=== PATIENT | female | born 1955 | race Two or more races ===

== ENCOUNTER 2018-12-13 14:19 | Inpatient (IN) | payer MEDICAID ==
[~2018-12-13] VITALS: Ht 137.2 cm; Wt 101.6 kg
[~2018-12-13 14:19] MED LIST: ALBU0.5N2; ASPI-231; CARB100C20; DIPH-120; METF500T; SIMV10TA73
[2018-12-13] MEDS ORDERED: ASPirin 81 mg TAB PO ONE (15:15)
[2018-12-13] MEDS ORDERED: NITROGLYCERIN 0.4 MG SL TAB SL ONE (15:15)
[2018-12-13] MEDS ORDERED: FUROSEMIDE 20 MG/2 ML VIAL IV ONE (15:15)
[2018-12-13 15:46] LABS: Basophils # (auto) 0.1 uL; Basophils % (auto) 0.6 % (0.0-2.0); Eosinophils # (auto) 0.9 uL; Eosinophils % (auto) 7.2 % (0.0-7.0); Hematocrit 43.3 % (36.0-46.0); Lymphocytes # (auto) 2.8 uL; Lymphocytes % (auto) 23.2 % (10.0-50.0); Mean Corpuscular Hemoglobin 27.2 pg (28.0-32.0); Mean Corpuscular Hgb Conc. 32.4 g/dL (32.0-36.0); Mean Corpuscular Volume 83.9 fL (80.0-100.0); Monocytes % (auto) 8.2 % (0.0-12.0); Neutrophils # (auto) 7.4 uL; Neutrophils % (auto) 60.8 % (37.0-80.0); Nucleated Red Blood Cells % 0.1 %; Platelet Count (auto) 223 10^3/uL (140-450); Red Blood Cells 5.16 10^6/uL (4.0-5.20); Red Cell Distribution Width 15.6 % (11.8-14.3); White Blood Cell 12.1 10^3/uL (4.4-10.8)
[2018-12-13 16:03] LABS: Albumin 3.2 g/dL (3.4-5.0); Anion Gap 12 (5-15); Blood Urea Nitrogen 20 mg/dL (7-18); Calcium 8.2 mg/dL (8.5-10.1); Carbon Dioxide 25 mmol/L (21-32); Chloride 105 mmol/L (98-107); Glucose 311 mg/dL (74-106); Magnesium 2.2 mg/dL (1.6-2.6); Potassium 4.3 mmol/L (3.5-5.1); Sodium 142 mmol/L (136-145)
[2018-12-13 16:08] LABS: Alanine Aminotransferase 33 U/L (13-56); Alkaline Phosphatase 53 U/L (45-117); Aspartate Aminotransferase 28 U/L (15-37); Bilirubin, Total 0.2 mg/dL (0.2-1.0); GFR African American 80 mL/min; GFR Non-African American 66 mL/min; Total Protein 7.3 g/dL (6.4-8.2)
[2018-12-13] MEDS ORDERED: IPRATROPIUM BROM 0.5 MG/2.5ML INH SOL NEB ONE (17:00)
[2018-12-13] MEDS ORDERED: ALBUTEROL SULF 2.5 MG/0.5ML(0.5%) NEB SOLN NEB ONE (17:00)
[2018-12-13] MEDS ORDERED: hydrALAZINE HCL 20 MG/ML VL IV PRN (17:00)
[2018-12-13] MEDS ORDERED: ACETAMINOPHEN 500 MG TAB PO PRN (17:00)
[2018-12-13] MEDS ORDERED: IPRATROPIUM BROM 0.5 MG/2.5ML INH SOL NEB PRN (17:00)
[2018-12-13] MEDS ORDERED: ONDANSETRON HCL 4 MG/2 ML VIAL IV PRN (17:00)
[2018-12-13] MEDS ORDERED: ALBUTEROL SULF 2.5 MG/0.5ML(0.5%) NEB SOLN NEB PRN (17:00)
[2018-12-13] MEDS ORDERED: DEXTROSE (50%) 50ML SYRG IV PRN (17:00)
[2018-12-13] MEDS ORDERED: HYDROcodone-ACET 5/325MG TAB PO PRN (17:00)
[2018-12-13] MEDS ORDERED: NITROGLYCERIN 0.4 MG SL TAB SL PRN (17:00)
[2018-12-13] MEDS ORDERED: MORPHINE SULF INJ 2 MG/ML SYRINGE 1ML IV PRN ×2 (17:00)
[2018-12-13] MEDS: ACCU-CHEK COMFORT CURVE STRIP VI SCH ×2 (17:48→21:51)
[2018-12-13] MEDS: InsuLIN REG 1unit/0.01ml Soln (100units/ml) SC SCH ×2 (17:49→21:52)
[2018-12-13 20:30] VITALS: BP 149/66
[2018-12-13] MEDS: DOCUSATE SOD 100 MG CAP PO SCH (21:41)
[2018-12-13] MEDS: METOPROLOL TARTRATE 25 MG TAB PO SCH (21:42)
[2018-12-13] MEDS: ATORVASTATIN 20 MG TAB PO SCH (21:42)
[2018-12-13 21:56] VITALS: BP 149/66
[2018-12-13] MEDS ORDERED: PIO30T PO (22:19)
[2018-12-13] MEDS ORDERED: METF-370 PO (22:21)
[2018-12-13] MEDS ORDERED: BECL80AE11 IN (22:23)
[2018-12-13] MEDS ORDERED: GABA300C10 PO (22:23)
[2018-12-14] VITALS (7 sets, daily range): BP systolic 102–151; BP diastolic 52–99
[2018-12-14 06:31] LABS: INR 0.97 (0.9-1.15); Partial Thromboplastin Time 23.5 sec (23.64-32.05)
[2018-12-14] MEDS: InsuLIN REG 1unit/0.01ml Soln (100units/ml) SC SCH ×5 (06:32→21:43)
[2018-12-14] MEDS: ACCU-CHEK COMFORT CURVE STRIP VI SCH ×4 (06:32→21:42)
[2018-12-14 06:33] LABS: Basophils # (auto) 0.1 uL; Basophils % (auto) 0.6 % (0.0-2.0); Eosinophils # (auto) 0.9 uL; Eosinophils % (auto) 8.7 % (0.0-7.0); Hematocrit 42.2 % (36.0-46.0); Lymphocytes # (auto) 2.2 uL; Lymphocytes % (auto) 21.1 % (10.0-50.0); Mean Corpuscular Hgb Conc. 33.3 g/dL (32.0-36.0); Mean Corpuscular Volume 84.2 fL (80.0-100.0); Monocytes # (auto) 0.8 uL; Monocytes % (auto) 7.8 % (0.0-12.0); Neutrophils # (auto) 6.6 uL; Neutrophils % (auto) 61.8 % (37.0-80.0); Nucleated Red Blood Cells % 0.1 %; Platelet Count (auto) 195 10^3/uL (140-450); Red Blood Cells 5.01 10^6/uL (4.0-5.20); Red Cell Distribution Width 15.6 % (11.8-14.3); White Blood Cell 10.6 10^3/uL (4.4-10.8)
[2018-12-14 06:38] LABS: Calcium 8.1 mg/dL (8.5-10.1)
[2018-12-14 06:40] LABS: BUN/Creatinine Ratio 21.9
--- NOTE | 2018-12-14 07:04 | NUR ---
Respiratory note: AT BEDSIDE TO ASSESS PT FOR PRN TX. TX NOT INDICATED AT THIS TIME. BS ARE CLEAR DIMINISHED T/O. HR 71, RR 20, POX94% ON 2LPM NC. RT NAME AND PAGER ASSIGNMENT WRITTEN ON PTS ROOM BOARD. WILL CONTINUE TO MONITOR.
--- NOTE | 2018-12-14 07:15 | NUR ---
PT AWAKE, ALERT, ORIENTEDx4 COOPERATIVE OF CARE. ABLE TO VERBALIZE NEEDS, DENIES DISCOMFORT AT MOMENT. PT REPORTS SOB ON EXERTION. ON ROOM AIR AT MOMENT. TOLERATING WELL. IV PRESENT TO RAC#20 BED IN LOWEST POSITION, CALL LIGHT WITHIN REACH. WILL CONTINUE TO MONITOR.
[2018-12-14] MEDS ORDERED: ADENOSINE 85 MG in GIVE UN-DILUTED 0 ML IV STA (08:29)
--- NOTE | 2018-12-14 09:40 | NUR ---
ECHO COMPLETED. PT TOLERATED PROCEDURE WELL.
[2018-12-14] MEDS: METOPROLOL TARTRATE 25 MG TAB PO SCH ×2 (10:00→21:33)
[2018-12-14] MEDS: ASPirin-EC 81 mg tab PO SCH (10:00)
--- NOTE | 2018-12-14 10:00 | NUR ---
IV ACCESS INSERTED TO LEFT HAND #20. STRESS TEST PURPOSES. PT TOLERATED PROCEDURE WELL. IV FLUSHES EASILY, TRANSPARENT DRESSING IN PLACE SECURED WITH TAPE. CALL LIGHT WITHIN REACH. DAUGHTER AT BEDSIDE.
[2018-12-14] MEDS: DOCUSATE SOD 100 MG CAP PO SCH ×2 (10:55→21:32)
[2018-12-14] MEDS: PANTOPRAZOLE 40 MG TAB PO SCH (10:55)
[2018-12-14] MEDS: LISINOPRIL 10 MG TAB PO SCH (10:57)
--- NOTE | 2018-12-14 11:48 | NUR ---
PT OFF UNIT; HAVING STRESS TEST DONE.
--- NOTE | 2018-12-14 13:45 | NUR ---
PT BACK TO UNIT. TRANSPORTED VIA WHEELCHAIR, DENIES SOB, CHEST PAIN AT THIS TIME. O2SAT: 95% ON 2LNC. PT REPORTING PAIN TO RAC#20 IV SITE. IV CATHETER DC'D NO PHLEBITIS, CATHETER INTACT, REPORTS COMFORT TO SITE. BED IN LOWEST POSITION, CALL LIGHT WITHIN REACH.
[2018-12-14] MEDS ORDERED: SODIUM CHLORIDE 0.9% 1,000 ML IV ONE (16:15)
--- NOTE | 2018-12-14 16:45 | NUR ---
PT TO HAVE A CT-ANGIO. PT AWARE FOR NPO REASON 4-6 HOURS PRIOR TO EXAM. INSERTED NEW IV SITE TO LEFT MID FOREARM #20 FOR EXAM PURPOSE. PT TOLERATED PROCEDURE WELL. CALL LIGHT WITHIN REACH. FAMILY AT BEDSIDE.
--- NOTE | 2018-12-14 17:00 | NUR ---
PT IS TO HAVE 1000ML OF NS POST CT-ANGIO PER MD ORDER.
[2018-12-14] MEDS ORDERED: IOHEXOL 350 MG/ML 100ML IJ ONE (18:04)
--- NOTE | 2018-12-14 20:00 | NUR ---
Opening Shift Note Assumed care of patient, awake and alert. No S/S of distress/SOB or pain. Instructed on POC and to call for assist PRN, will continue to monitor for changes Q1hr and PRN.Went down for ct angio of the chest.
[2018-12-14] MEDS: ATORVASTATIN 20 MG TAB PO SCH (21:32)
[2018-12-14] MEDS ORDERED: INSULIN LANTUS (GLARGINE) 1 /0.01ml (100units/ml) SC SCH (22:00)
--- NOTE | 2018-12-14 23:00 | NUR ---
Respiratory note: PT ASSESSED FOR PRN MED NEB TX. HR 72, RR 16, SPO2 94% ON 2L NC, BS CLEAR T/O. NO SIGNS OF ANY RESPIRATORY DISTRESS NOTED. ADVISED PT TO CALL IF TX IS NEEDED.
[2018-12-15 05:30] VITALS: BP 114/62
[2018-12-15] MEDS: InsuLIN REG 1unit/0.01ml Soln (100units/ml) SC SCH ×2 (06:33→11:46)
--- NOTE | 2018-12-15 07:13 | NUR ---
Report given to Macey Correa to assume care, patient is resting no distress.
[2018-12-15] MEDS: ACCU-CHEK COMFORT CURVE STRIP VI SCH ×2 (07:18→11:47)
--- NOTE | 2018-12-15 07:20 | NUR ---
PT AWAKE, ALERT, ORIENTEDx4 RESPONSIVE TO COMMANDS. ON 2LNC NO S/S OF DISTRESS, DENIES CHEST PAIN, SOB AT MOMENT. IV PRESENT TO LH#20, LFA#20. BED WHEELS LOCKED, BED IN LOWEST POSITION, CALL LIGHT WITHIN REACH. WILL CONTINUE TO MONITOR.
[2018-12-15 09:00] VITALS: BP 117/67
[2018-12-15] MEDS ORDERED: ATOR20TA50 PO (09:21)
[2018-12-15] MEDS ORDERED: POTA10TA51 PO (09:21)
[2018-12-15] MEDS ORDERED: FURO40TA4 PO (09:21)
--- NOTE | 2018-12-15 10:31 | NUR ---
RT NOTE: NO TX INDICATED AT THIS TIME. NO SIGNS OF RESPIRATORY DISTRESS. LUNG SOUNDS CLEAR/DIMINISHED T/O. ON RA SPO2 93 HR 78 RR 16. FAMILY IS BEDSIDE AND TRANSLATED FOR TO INFORM PT TO CALL IF NEED FOR TX ARISES. WILL CONTINUE TO MONITOR.
[2018-12-15] MEDS: LISINOPRIL 10 MG TAB PO SCH (10:52)
[2018-12-15] MEDS: DOCUSATE SOD 100 MG CAP PO SCH (10:52)
[2018-12-15] MEDS: ASPirin-EC 81 mg tab PO SCH (10:52)
[2018-12-15] MEDS: PANTOPRAZOLE 40 MG TAB PO SCH (10:52)
[2018-12-15] MEDS: METOPROLOL TARTRATE 25 MG TAB PO SCH (10:53)
[2018-12-15] MEDS ORDERED: PANT40T PO (12:14)
[2018-12-15 13:00] VITALS: BP 106/62
[2018-12-15 13:50] VITALS: BP 117/67
--- NOTE | 2018-12-15 15:07 | NUR ---
DISCHARGE INSTRUCTIONS GIVEN TO PT AND DAUGHTER. BOTH VERBALIZED UNDERSTANDING FOR PRESCRIPTION ORDERS AND FOLLOW UP APPOINTMENT WITH PRIMARY CARE PROVIDER AND INSURANCE ASSOCIATE. PRESCRIPTIONS WERE DELIVERED TO BEDSIDE BY [facility]. IV CATHETER DC'D, CATHETER INTACT, NO PHLEBITIS. TELE BOX REMOVED AND RETURNED TO JODI. ALL QUESTIONS AND CONCERNS ADDRESSED. PT ESCORTED SAFELY OUT OF UNIT VIA WHEELCHAIR, CCOMPANIED BY STAFF AND FAMILY.
== END 2018-12-15 15:10 | disposition home or self-care (01) | DRG 243 ==
LOC: ER 14:24 → TELE 16:58 → TELE-WESTW 20:34
PROVIDERS: ADMIT Nurse Practitioner Acute Care; ATTEND Internal Medicine
DX: K21.9 Gastro-esophageal reflux disease without esophagitis (principal); J96.01 Acute respiratory failure with hypoxia; I24.9 Acute ischemic heart disease, unspecified; E11.65 Type 2 diabetes mellitus with hyperglycemia; E44.1 Mild protein-calorie malnutrition; E66.01 Morbid (severe) obesity due to excess calories; I11.0 Hypertensive heart disease with heart failure; E78.00 Pure hypercholesterolemia, unspecified; E78.5 Hyperlipidemia, unspecified; D72.829 Elevated white blood cell count, unspecified; Z79.84 Long term (current) use of oral hypoglycemic drugs; Z68.43 Body mass index [BMI] 50.0-59.9, adult
CPT/HCPCS: 36415; 71045; 71046; 71275; 76705; 78452; 80048; 80053; 80061; 82962; 83036; 83735; 83880; 84443; 84484; 85025; 85379; 85610; 85730; 86141; 93005; 93017; 93306; 94640; G0378; J0153; J1815

== ENCOUNTER 2021-12-17 11:28 | Inpatient (IN) | payer OTHER, MEDICAID ==
[~2021-12-17] VITALS: Ht 160 cm; Wt 96.7 kg
[~2021-12-17 11:28] MED LIST changes: -ASPI-231; +ASPI1TAB20; +ATOR20TA50 PO; +BECL80AE11 IN; +FURO40TA4 PO; +GABA300C10 PO; +METF-370 PO; -METF500T; +PANT40T PO; +POTA10TA51 PO; -SIMV10TA73
[2021-12-17] MEDS ORDERED: methylPREDNISolone SOD SUCC 125 MG/2 ML VL IV ONE (11:45)
[2021-12-17] MEDS ORDERED: cefTRIAXone 1GM/50ML D5W 50 ML IV ONE (11:45)
[2021-12-17] MEDS ORDERED: AZITHROMYCIN 500MG/ 250ML 250 ML IV ONE (11:45)
[2021-12-17 12:22] LABS: Eosinophils # (auto) 0 10 ^3/uL (0-0.8); Hemoglobin 13.2 g/dL (12.2-16.2); Mean Corpuscular Hemoglobin 26.4 pg (28.0-32.0); Monocytes # (auto) 0.7 10 ^3/uL (0-1.3); Monocytes % (auto) 4.1 % (0.0-12.0); Nucleated Red Blood Cells % 0.1 %; Red Blood Cells 4.99 10^6/uL (4.0-5.20)
[2021-12-17 12:23] LABS: Basophils # (auto) 0.1 10 ^3/uL (0-0.2); Basophils % (auto) 0.3 % (0.0-2.0); Eosinophils % (auto) 0.1 % (0.0-7.0); Hematocrit 41.4 % (36.0-46.0); Lymphocytes # (auto) 1.1 10 ^3/uL (0.4-5.4); Lymphocytes % (auto) 6.5 % (10.0-50.0); Mean Corpuscular Hgb Conc. 31.9 g/dL (32.0-36.0); Mean Corpuscular Volume 82.9 fL (80.0-100.0); Neutrophils # (auto) 15.1 10 ^3/uL (1.6-8.6); Red Cell Distribution Width 16.9 % (11.8-14.3)
[2021-12-17 13:55] LABS: Albumin 2.7 g/dL (3.4-5.0); BUN/Creatinine Ratio 26.3; Bilirubin, Total 0.4 mg/dL (0.2-1.0); Calcium 8.2 mg/dL (8.5-10.1); Potassium 4.3 mmol/L (3.5-5.1); Total Protein 7.8 g/dL (6.4-8.2)
[2021-12-17] MEDS ORDERED: IOHEXOL 350 MG/ML 100ML IJ ONE (14:42)
[2021-12-17] MEDS ORDERED: ENOXAPARIN SOD 80 MG/0.8ML SYRINGE SC ONE (14:45)
[2021-12-17 16:02] LABS: Urine Bacteria NONE SEEN /hpf (None Seen); Urine Blood Negative /uL (Negative); Urine Budding Yeast FEW /hpf (None Seen); Urine Specific Gravity 1.025 (1.001-1.035); Urine WBC 1 /hpf (0 - 5)
[2021-12-17] MEDS ORDERED: ALBUTEROL SULF 2.5 MG/0.5ML(0.5%) NEB SOLN NEB PRN (19:15)
[2021-12-17] MEDS ORDERED: IPRATROPIUM BROM 0.5 MG/2.5ML INH SOL NEB PRN (19:15)
[2021-12-17] MEDS ORDERED: MORPHINE SULFATE INJ 2 MG/ml SYRG IV PRN (19:15)
[2021-12-17] MEDS ORDERED: DEXTROSE (50%) 50ML SYRG IV PRN (19:15)
[2021-12-17] MEDS ORDERED: NITROGLYCERIN 0.4 MG SL TAB SL PRN (19:15)
[2021-12-17] MEDS ORDERED: SODIUM CHLORIDE 0.9% 500 ML IV ONE (19:15)
[2021-12-17 19:27] VITALS: BP 135/73
[2021-12-17 19:52] LABS: Cholesterol 113 mg/dL (< 200)
[2021-12-17 19:54] LABS: HDL Cholesterol 25 mg/dL (40-59); LDL Cholesterol 76 mg/dL (< 100); Triglycerides 145 mg/dL (< 150)
[2021-12-17 21:00] VITALS: BP 141/78
[2021-12-17 21:21] VITALS: BP 141/78
[2021-12-17] MEDS: ACCU-CHEK COMFORT CURVE STRIP VI SCH (23:08)
[2021-12-17] MEDS: InsuLIN REG 1unit/0.01ml Soln (100units/ml) SC SCH (23:09)
[2021-12-18] MEDS: ALBUTEROL SULF 2.5 MG/0.5ML(0.5%) NEB SOLN NEB SCH ×5 (00:37→22:21)
[2021-12-18] MEDS: IPRATROPIUM BROM 0.5 MG/2.5ML INH SOL NEB SCH ×5 (00:37→22:21)
[2021-12-18 05:20] VITALS: BP 128/80
[2021-12-18 06:30] LABS: Albumin 2.6 g/dL (3.4-5.0); Calcium 8.4 mg/dL (8.5-10.1)
[2021-12-18 06:31] LABS: Basophils # (auto) 0 10 ^3/uL (0-0.2); Eosinophils # (auto) 0 10 ^3/uL (0-0.8); Hematocrit 38.2 % (36.0-46.0); Hemoglobin 12.4 g/dL (12.2-16.2); Lymphocytes # (auto) 1.4 10 ^3/uL (0.4-5.4); Lymphocytes % (auto) 9.5 % (10.0-50.0); Mean Corpuscular Hemoglobin 27.3 pg (28.0-32.0); Mean Corpuscular Hgb Conc. 32.5 g/dL (32.0-36.0); Monocytes # (auto) 1.3 10 ^3/uL (0-1.3); Monocytes % (auto) 8.7 % (0.0-12.0); Neutrophils # (auto) 11.9 10 ^3/uL (1.6-8.6); Neutrophils % (auto) 81.8 % (37.0-80.0); Nucleated Red Blood Cells % 0.2 %; Red Blood Cells 4.55 10^6/uL (4.0-5.20); Red Cell Distribution Width 16.2 % (11.8-14.3); White Blood Cell 14.5 10^3/uL (4.4-10.8)
[2021-12-18] MEDS: InsuLIN REG 1unit/0.01ml Soln (100units/ml) SC SCH ×4 (06:31→22:42)
[2021-12-18] MEDS: ACCU-CHEK COMFORT CURVE STRIP VI SCH ×4 (06:31→22:41)
[2021-12-18 06:36] LABS: BUN/Creatinine Ratio 26.7; Bilirubin, Total 0.4 mg/dL (0.2-1.0); Total Protein 7.6 g/dL (6.4-8.2)
[2021-12-18] MEDS: cefTRIAXone 1GM/50ML D5W 50 ML IV SCH (08:33)
[2021-12-18] MEDS: methylPREDNISolone SOD SUCC 125 MG/2 ML VL IV SCH ×2 (08:34→22:34)
[2021-12-18] MEDS: ENOXAPARIN SOD 40 MG/0.4 ML SYRINGE SC SCH (08:34)
[2021-12-18 09:00] VITALS: BP 143/64
[2021-12-18] MEDS: AZITHROMYCIN 500MG/ 250ML 250 ML IV SCH (09:58)
[2021-12-18] MEDS ORDERED: amLODIPine BESYLATE 5 MG TAB PO ONE (12:30)
[2021-12-18] MEDS ORDERED: hydrALAZINE HCL 20 MG/ML VL IV PRN (13:45)
[2021-12-18] MEDS ORDERED: IPRATROPIUM BROM 0.5 MG/2.5ML INH SOL NEB PRN (13:45)
[2021-12-18] MEDS ORDERED: ALBUTEROL SULF 2.5 MG/0.5ML(0.5%) NEB SOLN NEB PRN (13:45)
[2021-12-18] MEDS: guaiFENesin-DM 100/10mg/5ml SYR PO PRN ×2 (16:34→22:48)
[2021-12-18 17:00] VITALS: BP 120/60
[2021-12-18 21:19] VITALS: BP 138/74
[2021-12-18] MEDS ORDERED: INSULIN LANTUS (GLARGINE) 1 /0.01ml (100units/ml) SC SCH (22:00)
[2021-12-19] MEDS: IPRATROPIUM BROM 0.5 MG/2.5ML INH SOL NEB SCH ×6 (02:20→23:34)
[2021-12-19] MEDS: ALBUTEROL SULF 2.5 MG/0.5ML(0.5%) NEB SOLN NEB SCH ×6 (02:20→23:34)
[2021-12-19 04:59] VITALS: BP 123/66
[2021-12-19] MEDS: ACCU-CHEK COMFORT CURVE STRIP VI SCH ×6 (06:34→22:00)
[2021-12-19] MEDS: InsuLIN REG 1unit/0.01ml Soln (100units/ml) SC SCH ×4 (06:34→22:00)
[2021-12-19 07:17] LABS: Basophils # (auto) 0 10 ^3/uL (0-0.2); Eosinophils # (auto) 0 10 ^3/uL (0-0.8); Lymphocytes # (auto) 0.9 10 ^3/uL (0.4-5.4); Monocytes # (auto) 0.7 10 ^3/uL (0-1.3); Nucleated Red Blood Cells % 0.1 %
[2021-12-19 07:21] LABS: Basophils % (auto) 0.1 % (0.0-2.0); Hematocrit 40.4 % (36.0-46.0); Hemoglobin 12.7 g/dL (12.2-16.2); Mean Corpuscular Hemoglobin 26.6 pg (28.0-32.0); Mean Corpuscular Hgb Conc. 31.5 g/dL (32.0-36.0); Mean Corpuscular Volume 84.6 fL (80.0-100.0); Monocytes % (auto) 4.9 % (0.0-12.0); Neutrophils # (auto) 12.7 10 ^3/uL (1.6-8.6); Red Blood Cells 4.77 10^6/uL (4.0-5.20); Red Cell Distribution Width 16.2 % (11.8-14.3); White Blood Cell 14.2 10^3/uL (4.4-10.8)
[2021-12-19 07:35] LABS: Potassium 4.7 mmol/L (3.5-5.1)
[2021-12-19 07:47] LABS: Albumin 2.7 g/dL (3.4-5.0); Bilirubin, Total 0.3 mg/dL (0.2-1.0); Calcium 9.1 mg/dL (8.5-10.1); Magnesium 2.2 mg/dL (1.6-2.6); Total Protein 7.9 g/dL (6.4-8.2)
[2021-12-19 08:55] VITALS: BP 142/61
[2021-12-19] MEDS: methylPREDNISolone SOD SUCC 125 MG/2 ML VL IV SCH (09:57)
[2021-12-19] MEDS: cefTRIAXone 1GM/50ML D5W 50 ML IV SCH (09:57)
[2021-12-19] MEDS: amLODIPine BESYLATE 5 MG TAB PO SCH (09:58)
[2021-12-19] MEDS: PANTOPRAZOLE 40 MG TAB PO SCH (09:58)
[2021-12-19] MEDS: ENOXAPARIN SOD 40 MG/0.4 ML SYRINGE SC SCH (09:59)
[2021-12-19] MEDS: guaiFENesin-DM 100/10mg/5ml SYR PO PRN ×2 (10:20→16:38)
[2021-12-19] MEDS: INSULIN LANTUS (GLARGINE) 1 /0.01ml (100units/ml) SC SCH ×2 (10:30→22:00)
[2021-12-19] MEDS: AZITHROMYCIN 500MG/ 250ML 250 ML IV SCH (11:52)
[2021-12-19 13:00] VITALS: BP 114/80
[2021-12-19 17:00] VITALS: BP 117/71
[2021-12-19 20:00] VITALS: BP 142/61
[2021-12-19 22:00] VITALS: BP 119/64
[2021-12-20] MEDS: ALBUTEROL SULF 2.5 MG/0.5ML(0.5%) NEB SOLN NEB SCH ×6 (02:58→22:46)
[2021-12-20] MEDS: IPRATROPIUM BROM 0.5 MG/2.5ML INH SOL NEB SCH ×6 (02:58→22:46)
[2021-12-20] MEDS: methylPREDNISolone SOD SUCC 125 MG/2 ML VL IV SCH ×3 (03:37→22:37)
[2021-12-20 05:00] VITALS: BP 133/72
[2021-12-20] MEDS: InsuLIN REG 1unit/0.01ml Soln (100units/ml) SC SCH ×4 (06:01→22:38)
[2021-12-20] MEDS: ACCU-CHEK COMFORT CURVE STRIP VI SCH ×7 (06:01→22:38)
[2021-12-20 06:41] LABS: Hematocrit 37.6 % (36.0-46.0); Hemoglobin 12.5 g/dL (12.2-16.2); Mean Corpuscular Hemoglobin 28.2 pg (28.0-32.0); Mean Corpuscular Hgb Conc. 33.2 g/dL (32.0-36.0); Mean Corpuscular Volume 84.9 fL (80.0-100.0); Red Blood Cells 4.43 10^6/uL (4.0-5.20); Red Cell Distribution Width 16.1 % (11.8-14.3); White Blood Cell 14.6 10^3/uL (4.4-10.8)
[2021-12-20 06:51] LABS: BUN/Creatinine Ratio 38.4; Calcium 8.4 mg/dL (8.5-10.1); Potassium 3.7 mmol/L (3.5-5.1)
[2021-12-20 06:52] LABS: Basophils % (manual) 0 (0.0-2.0); Blast Cells 0; Eosinophils % (manual) 0 (0-7); Myelocytes % 0; Promyelocytes % 0; Reactive Lymphocytes 0
[2021-12-20 08:22] LABS: Band Neutrophils % (manual) 3; Lymphocytes % (manual) 5 (10.0-50.0); Metamyelocytes % 4; Monocytes % (manual) 8 (0-12)
[2021-12-20 09:00] VITALS: BP 127/62
[2021-12-20] MEDS: PANTOPRAZOLE 40 MG TAB PO SCH (10:56)
[2021-12-20] MEDS: ENOXAPARIN SOD 40 MG/0.4 ML SYRINGE SC SCH (10:56)
[2021-12-20] MEDS: cefTRIAXone 1GM/50ML D5W 50 ML IV SCH (10:56)
[2021-12-20] MEDS: amLODIPine BESYLATE 5 MG TAB PO SCH (10:57)
[2021-12-20] MEDS: guaiFENesin-DM 100/10mg/5ml SYR PO PRN ×2 (11:30→20:13)
[2021-12-20] MEDS: INSULIN LANTUS (GLARGINE) 1 /0.01ml (100units/ml) SC SCH ×2 (12:13→22:41)
[2021-12-20] MEDS: AZITHROMYCIN 500MG/ 250ML 250 ML IV SCH (12:14)
[2021-12-20 13:00] VITALS: BP 125/59
[2021-12-20 17:00] VITALS: BP 120/62
[2021-12-20] MEDS ORDERED: INSULIN LANTUS (GLARGINE) 1 /0.01ml (100units/ml) SC ONE (17:30)
[2021-12-20 22:00] VITALS: BP 163/75
[2021-12-21 01:53] VITALS: BP 163/75
[2021-12-21] MEDS: IPRATROPIUM BROM 0.5 MG/2.5ML INH SOL NEB SCH ×4 (03:04→14:13)
[2021-12-21] MEDS: ALBUTEROL SULF 2.5 MG/0.5ML(0.5%) NEB SOLN NEB SCH ×4 (03:04→14:13)
[2021-12-21 05:00] VITALS: BP_SYST 123; BP_SYST 135; BP_DIAS 58; BP_DIAS 78
[2021-12-21 05:28] LABS: Hemoglobin 12.7 g/dL (12.2-16.2); Mean Corpuscular Hgb Conc. 32.6 g/dL (32.0-36.0)
[2021-12-21 05:34] LABS: Hematocrit 39.1 % (36.0-46.0); Mean Corpuscular Hemoglobin 26.8 pg (28.0-32.0); Mean Corpuscular Volume 82.1 fL (80.0-100.0); Red Blood Cells 4.76 10^6/uL (4.0-5.20); Red Cell Distribution Width 16.2 % (11.8-14.3); White Blood Cell 12.3 10^3/uL (4.4-10.8)
[2021-12-21 05:54] LABS: Band Neutrophils % (manual) 0; Basophils % (manual) 0 (0.0-2.0); Blast Cells 0; Eosinophils % (manual) 0 (0-7); Metamyelocytes % 0; Myelocytes % 0; Promyelocytes % 0; Reactive Lymphocytes 0
[2021-12-21 05:55] LABS: Potassium 4.6 mmol/L (3.5-5.1)
[2021-12-21] MEDS: ACCU-CHEK COMFORT CURVE STRIP VI SCH ×6 (06:09→17:00)
[2021-12-21 06:10] LABS: BUN/Creatinine Ratio 34.2; Calcium 8.3 mg/dL (8.5-10.1)
[2021-12-21] MEDS: InsuLIN REG 1unit/0.01ml Soln (100units/ml) SC SCH ×3 (06:11→18:01)
[2021-12-21 09:00] VITALS: BP 147/80
[2021-12-21] MEDS: cefTRIAXone 1GM/50ML D5W 50 ML IV SCH (09:04)
[2021-12-21] MEDS: PANTOPRAZOLE 40 MG TAB PO SCH (09:05)
[2021-12-21] MEDS: methylPREDNISolone SOD SUCC 125 MG/2 ML VL IV SCH (09:05)
[2021-12-21] MEDS: AZITHROMYCIN 500MG/ 250ML 250 ML IV SCH (09:05)
[2021-12-21] MEDS: ENOXAPARIN SOD 40 MG/0.4 ML SYRINGE SC SCH (09:05)
[2021-12-21] MEDS: amLODIPine BESYLATE 5 MG TAB PO SCH (10:30)
[2021-12-21] MEDS: INSULIN LANTUS (GLARGINE) 1 /0.01ml (100units/ml) SC SCH (12:19)
[2021-12-21 12:47] LABS: Lymphocytes % (manual) 4 (10.0-50.0); Monocytes % (manual) 4 (0-12)
[2021-12-21 13:00] VITALS: BP 132/67
[2021-12-21] MEDS ORDERED: DEXT1SYP9 PO (13:04)
[2021-12-21] MEDS ORDERED: ALBUAER3 IN (13:04)
[2021-12-21] MEDS ORDERED: AMLO-496 PO (13:04)
[2021-12-21] MEDS ORDERED: PRED20TA2 PO (13:04)
[2021-12-21] MEDS ORDERED: LEVO750T8 PO (13:04)
[2021-12-21] MEDS ORDERED: MAGIC MT (16:10)
[2021-12-21] MEDS ORDERED: MAGIC MOUTHWASH 55 ML SUSP MT ONE (16:15)
[2021-12-21 17:00] VITALS: BP 121/66
[2021-12-21] MEDS ORDERED: DexAMETHasone SOD PHOS 10MG/1ML VIAL INJ IM ONE (18:00)
[2021-12-21] MEDS ORDERED: diphenhdrAMINE HCL 12.5 MG/5 ML UD PO ONE ×2 (18:00→18:15)
[2021-12-21] MEDS ORDERED: diphenhdrAMINE HCL 25 MG CAP PO ONE (18:30)
[2021-12-22] MEDS ORDERED: predniSONE 20 MG TAB PO SCH (10:00)
== END 2021-12-21 19:00 | disposition home health service (06) | DRG 871 ==
LOC: EDUNIT# 11:28 → EDBD 11:28 → EDSEX 11:28 → ER 11:28 → TELE 19:02 → TELE-WESTW 20:44
PROVIDERS: ADMIT Registered Nurse; ATTEND Internal Medicine
DX: A41.9 Sepsis, unspecified organism (principal); J96.01 Acute respiratory failure with hypoxia; I21.A1 Myocardial infarction type 2; I50.33 Acute on chronic diastolic (congestive) heart failure; J18.9 Pneumonia, unspecified organism; J44.1 Chronic obstructive pulmonary disease with (acute) exacerbation; J45.901 Unspecified asthma with (acute) exacerbation; I13.0 Hypertensive heart and chronic kidney disease with heart failure and stage 1 through stage 4 chronic kidney disease, or unspecified chronic kidney disease; J44.0 Chronic obstructive pulmonary disease with (acute) lower respiratory infection; I27.20 Pulmonary hypertension, unspecified; N18.2 Chronic kidney disease, stage 2 (mild); E11.65 Type 2 diabetes mellitus with hyperglycemia; E11.22 Type 2 diabetes mellitus with diabetic chronic kidney disease; E66.01 Morbid (severe) obesity due to excess calories; E78.5 Hyperlipidemia, unspecified; K21.9 Gastro-esophageal reflux disease without esophagitis; E88.09 Other disorders of plasma-protein metabolism, not elsewhere classified; T38.0X5A Adverse effect of glucocorticoids and synthetic analogues, initial encounter; M19.90 Unspecified osteoarthritis, unspecified site; R80.9 Proteinuria, unspecified; R81 Glycosuria; Z20.822 Contact with and (suspected) exposure to COVID-19; Y92.89 Other specified places as the place of occurrence of the external cause; Z79.4 Long term (current) use of insulin; Z68.37 Body mass index [BMI] 37.0-37.9, adult
CPT/HCPCS: 36415; 36600; 71045; 71275; 80048; 80053; 80061; 81001; 82728; 82805; 82962; 83036; 83605; 83735; 83880; 84443; 84484; 85007; 85025; 85027; 85379; 87040; 87070; 87205; 93005; 93306; 94640; 96365; 96368; 96375; 99291; G0378; J0696; J1100; J1815

== ENCOUNTER 2022-01-01 15:36 | Inpatient (IN) | payer OTHER, MEDICAID ==
[~2022-01-01] VITALS: Ht 144.8 cm; Wt 96.5 kg
[~2022-01-01 15:36] MED LIST changes: +ALBUAER3 IN; +AMLO-496 PO; +DEXT1SYP9 PO; +LEVO750T8 PO; +MAGIC MT; +PRED20TA2 PO
[2022-01-01 17:03] LABS: Basophils # (auto) 0.1 10 ^3/uL (0-0.2); Eosinophils # (auto) 0.2 10 ^3/uL (0-0.8); Lymphocytes # (auto) 3.1 10 ^3/uL (0.4-5.4); Monocytes # (auto) 1.5 10 ^3/uL (0-1.3)
[2022-01-01 17:04] LABS: Basophils % (auto) 0.5 % (0.0-2.0); Hematocrit 45.2 % (36.0-46.0); Hemoglobin 14.6 g/dL (12.2-16.2); Mean Corpuscular Hemoglobin 26.8 pg (28.0-32.0); Mean Corpuscular Hgb Conc. 32.2 g/dL (32.0-36.0); Mean Corpuscular Volume 83.2 fL (80.0-100.0); Monocytes % (auto) 7.7 % (0.0-12.0); Neutrophils # (auto) 14.6 10 ^3/uL (1.6-8.6); Neutrophils % (auto) 74.8 % (37.0-80.0); Red Blood Cells 5.44 10^6/uL (4.0-5.20); Red Cell Distribution Width 17.8 % (11.8-14.3); White Blood Cell 19.5 10^3/uL (4.4-10.8)
[2022-01-01 17:19] LABS: Albumin 3.1 g/dL (3.4-5.0); Calcium 8.2 mg/dL (8.5-10.1); Magnesium 2.2 mg/dL (1.6-2.6); Potassium 4.3 mmol/L (3.5-5.1)
[2022-01-01 17:20] LABS: Lactic Acid w/Reflex 2.8 mmol/L (0.4-2.0)
[2022-01-01 17:21] LABS: BUN/Creatinine Ratio 26.5; Bilirubin, Total 0.3 mg/dL (0.2-1.0); Total Protein 6.8 g/dL (6.4-8.2)
[2022-01-01] MEDS ORDERED: cefTRIAXone 1GM/50ML D5W 50 ML IV ONE (17:45)
[2022-01-01] MEDS ORDERED: DOCUSATE SOD 100 MG CAP PO PRN (22:15)
[2022-01-01] MEDS ORDERED: ACETAMINOPHEN 325 MG TAB PO PRN (22:15)
[2022-01-01] MEDS ORDERED: HYDROcodone-ACET 5/325MG TAB PO PRN (22:15)
[2022-01-01] MEDS ORDERED: DEXTROSE (50%) 50ML SYRG IV PRN (22:15)
[2022-01-01] MEDS ORDERED: ONDANSETRON HCL 4 MG/2 ML VIAL IV PRN (22:15)
[2022-01-01] MEDS: InsuLIN REG 1unit/0.01ml Soln (100units/ml) SC SCH (23:12)
[2022-01-01] MEDS ORDERED: NITROGLYCERIN 0.4 MG SL TAB SL PRN (23:15)
[2022-01-01] MEDS ORDERED: MORPHINE SULFATE INJ 2 MG/ml SYRG IV PRN (23:15)
[2022-01-01] MEDS: FAMOTIDINE (10MG/ML) 2ML VL IV SCH (23:47)
[2022-01-01] MEDS: PIPERACILLIN-TAZOB 3.375GM 100 ML IV SCH (23:48)
[2022-01-02] MEDS: PIPERACILLIN-TAZOB 3.375GM 100 ML IV SCH ×3 (06:43→22:47)
[2022-01-02] MEDS ORDERED: ACCU-CHEK COMFORT CURVE STRIP VI SCH (07:00)
[2022-01-02] MEDS: InsuLIN REG 1unit/0.01ml Soln (100units/ml) SC SCH ×4 (07:00→22:39)
[2022-01-02 08:06] LABS: Basophils # (auto) 0.1 10 ^3/uL (0-0.2); Eosinophils # (auto) 0.2 10 ^3/uL (0-0.8); Monocytes # (auto) 1.2 10 ^3/uL (0-1.3); Neutrophils # (auto) 10.3 10 ^3/uL (1.6-8.6); White Blood Cell 14.3 10^3/uL (4.4-10.8)
[2022-01-02 08:09] LABS: Basophils % (auto) 0.5 % (0.0-2.0); Eosinophils % (auto) 1.4 % (0.0-7.0); Hematocrit 40.3 % (36.0-46.0); Hemoglobin 13.1 g/dL (12.2-16.2); Lymphocytes # (auto) 2.6 10 ^3/uL (0.4-5.4); Lymphocytes % (auto) 18.1 % (10.0-50.0); Mean Corpuscular Hemoglobin 26.8 pg (28.0-32.0); Mean Corpuscular Hgb Conc. 32.5 g/dL (32.0-36.0); Mean Corpuscular Volume 82.5 fL (80.0-100.0); Monocytes % (auto) 8.4 % (0.0-12.0); Neutrophils % (auto) 71.6 % (37.0-80.0); Red Blood Cells 4.88 10^6/uL (4.0-5.20)
[2022-01-02 08:11] LABS: Albumin 2.8 g/dL (3.4-5.0); Potassium 3.9 mmol/L (3.5-5.1)
[2022-01-02 08:13] LABS: BUN/Creatinine Ratio 35.4; Bilirubin, Total 0.6 mg/dL (0.2-1.0); Total Protein 6.2 g/dL (6.4-8.2)
[2022-01-02] MEDS: FAMOTIDINE (10MG/ML) 2ML VL IV SCH (09:40)
[2022-01-02] MEDS: ENOXAPARIN SOD 40 MG/0.4 ML SYRINGE SC SCH (09:41)
[2022-01-02] MEDS ORDERED: ALBUTEROL SULF 2.5 MG/0.5ML(0.5%) NEB SOLN NEB SCH (11:00)
[2022-01-02] MEDS ORDERED: DEXTROSE (50%) 50ML SYRG IV PRN (11:00)
[2022-01-02] MEDS ORDERED: ALBUTEROL SULF HFA 90MCG INH 200DOSE IN PRN (11:00)
[2022-01-02] MEDS ORDERED: IOHEXOL 300 MG/ML 100ML BOTTLE IJ ONE (11:32)
[2022-01-02 11:44] VITALS: BP 106/62
[2022-01-02] MEDS: ACCU-CHEK COMFORT CURVE STRIP VI SCH ×3 (11:47→22:36)
[2022-01-02] MEDS: MAGIC MOUTHWASH 55 ML SUSP MT SCH ×3 (12:21→22:00)
[2022-01-02 14:40] LABS: Alcohol, Urine < 3.0 mg/dL (0-10); Amphetamine Screen, Urine NEGATIVE (NEGATIVE); Barbiturate Scree,Urine NEGATIVE (NEGATIVE); Benzodiazephine Screen, Urine NEGATIVE (NEGATIVE); Cannabinoid Screen, Urine NEGATIVE (NEGATIVE); Cocaine Screen, Urine NEGATIVE (NEGATIVE); Opiate Scree,Urine NEGATIVE (NEGATIVE); Phencyclidine Screen, Urine NEGATIVE (NEGATIVE)
[2022-01-02] MEDS: LACTATED RINGER'S 1,000 ML IV SCH (15:47)
[2022-01-02 16:02] LABS: Urine Bacteria NONE SEEN /hpf (None Seen); Urine Blood Negative /uL (Negative); Urine Specific Gravity 1.028 (1.001-1.035); Urine WBC <1 /hpf (0 - 5)
[2022-01-02 17:33] VITALS: BP 109/66
[2022-01-02 21:44] VITALS: BP 123/63
[2022-01-02] MEDS: ATORVASTATIN 20 MG TAB PO SCH (22:48)
[2022-01-02] MEDS: GABAPENTIN 300 MG CAP PO SCH (22:55)
[2022-01-03] MEDS: LACTATED RINGER'S 1,000 ML IV SCH (00:45)
[2022-01-03 04:52] VITALS: BP 112/56
[2022-01-03 05:56] LABS: Basophils # (auto) 0.1 10 ^3/uL (0-0.2); Eosinophils # (auto) 0.3 10 ^3/uL (0-0.8); Hemoglobin 13.5 g/dL (12.2-16.2)
[2022-01-03 05:59] LABS: Basophils % (auto) 0.6 % (0.0-2.0); Eosinophils % (auto) 2.3 % (0.0-7.0); Hematocrit 42.2 % (36.0-46.0); Lymphocytes # (auto) 2.2 10 ^3/uL (0.4-5.4); Lymphocytes % (auto) 17.5 % (10.0-50.0); Mean Corpuscular Hemoglobin 26.4 pg (28.0-32.0); Mean Corpuscular Volume 82.5 fL (80.0-100.0); Neutrophils # (auto) 8.9 10 ^3/uL (1.6-8.6); Neutrophils % (auto) 71.6 % (37.0-80.0); Red Blood Cells 5.11 10^6/uL (4.0-5.20); Red Cell Distribution Width 17.5 % (11.8-14.3); White Blood Cell 12.4 10^3/uL (4.4-10.8)
[2022-01-03] MEDS: MAGIC MOUTHWASH 55 ML SUSP MT SCH ×4 (06:00→21:59)
[2022-01-03 06:28] LABS: Potassium 3.9 mmol/L (3.5-5.1)
[2022-01-03 06:36] LABS: Albumin 2.8 g/dL (3.4-5.0); BUN/Creatinine Ratio 26.3; Bilirubin, Total 0.6 mg/dL (0.2-1.0); Calcium 8.4 mg/dL (8.5-10.1); Total Protein 6.2 g/dL (6.4-8.2)
[2022-01-03] MEDS: PIPERACILLIN-TAZOB 3.375GM 100 ML IV SCH ×3 (06:39→21:58)
[2022-01-03] MEDS: ACCU-CHEK COMFORT CURVE STRIP VI SCH ×4 (07:19→21:59)
[2022-01-03] MEDS: InsuLIN REG 1unit/0.01ml Soln (100units/ml) SC SCH ×4 (07:20→22:19)
[2022-01-03 09:00] VITALS: BP 116/69
[2022-01-03] MEDS: BECLOMETHASONE DIPROPIONATE 80 MCG IN SCH ×3 (10:00→21:58)
[2022-01-03] MEDS: PANTOPRAZOLE 40 MG TAB PO SCH (10:01)
[2022-01-03] MEDS: ENOXAPARIN SOD 40 MG/0.4 ML SYRINGE SC SCH (10:01)
[2022-01-03] MEDS: amLODIPine BESYLATE 5 MG TAB PO SCH (10:02)
[2022-01-03] MEDS: ASPirin-EC 81 mg tab PO SCH (10:03)
[2022-01-03] MEDS: GABAPENTIN 300 MG CAP PO SCH ×2 (10:03→21:59)
[2022-01-03] MEDS: FUROSEMIDE 40 MG TAB PO SCH (10:04)
[2022-01-03] MEDS ORDERED: ALBUTEROL SULF 2.5 MG/0.5ML(0.5%) NEB SOLN NEB PRN (11:15)
[2022-01-03] MEDS ORDERED: IPRATROPIUM BROM 0.5 MG/2.5ML INH SOL NEB PRN (11:15)
[2022-01-03 13:00] VITALS: BP 112/71
[2022-01-03] MEDS: SOD CHL 0.45% 1,000 ML IV SCH ×2 (13:12→21:30)
[2022-01-03] MEDS: IPRATROPIUM BROM 0.5 MG/2.5ML INH SOL NEB SCH ×3 (14:10→22:56)
[2022-01-03] MEDS: ALBUTEROL SULF 2.5 MG/0.5ML(0.5%) NEB SOLN NEB SCH ×3 (14:11→22:56)
[2022-01-03 17:00] VITALS: BP 113/53
[2022-01-03] MEDS: ATORVASTATIN 20 MG TAB PO SCH (21:59)
[2022-01-03 22:00] VITALS: BP 116/58
[2022-01-04 05:00] VITALS: BP 129/72
[2022-01-04 05:23] LABS: Basophils # (auto) 0.1 10 ^3/uL (0-0.2); Basophils % (auto) 0.6 % (0.0-2.0); Eosinophils # (auto) 0.2 10 ^3/uL (0-0.8); Eosinophils % (auto) 1.8 % (0.0-7.0); Hematocrit 41.3 % (36.0-46.0); Hemoglobin 13.4 g/dL (12.2-16.2); Mean Corpuscular Hgb Conc. 32.5 g/dL (32.0-36.0); Monocytes % (auto) 8.9 % (0.0-12.0); Neutrophils # (auto) 7.7 10 ^3/uL (1.6-8.6); Neutrophils % (auto) 70.7 % (37.0-80.0); Red Blood Cells 4.98 10^6/uL (4.0-5.20); Red Cell Distribution Width 17.9 % (11.8-14.3); White Blood Cell 10.9 10^3/uL (4.4-10.8)
[2022-01-04 05:35] LABS: Albumin 2.8 g/dL (3.4-5.0); Potassium 3.7 mmol/L (3.5-5.1)
[2022-01-04 05:38] LABS: BUN/Creatinine Ratio 18.1; Bilirubin, Total 0.6 mg/dL (0.2-1.0); Total Protein 6.5 g/dL (6.4-8.2)
[2022-01-04] MEDS: PIPERACILLIN-TAZOB 3.375GM 100 ML IV SCH ×2 (06:31→12:43)
[2022-01-04] MEDS: MAGIC MOUTHWASH 55 ML SUSP MT SCH ×2 (06:31→12:06)
[2022-01-04] MEDS: ALBUTEROL SULF 2.5 MG/0.5ML(0.5%) NEB SOLN NEB SCH ×3 (06:31→13:39)
[2022-01-04] MEDS: IPRATROPIUM BROM 0.5 MG/2.5ML INH SOL NEB SCH ×3 (06:31→13:39)
[2022-01-04] MEDS: InsuLIN REG 1unit/0.01ml Soln (100units/ml) SC SCH ×2 (06:44→12:24)
[2022-01-04] MEDS: ACCU-CHEK COMFORT CURVE STRIP VI SCH ×2 (06:45→12:06)
[2022-01-04 09:00] VITALS: BP 118/60
[2022-01-04] MEDS: ENOXAPARIN SOD 40 MG/0.4 ML SYRINGE SC SCH (09:36)
[2022-01-04] MEDS: ASPirin-EC 81 mg tab PO SCH (09:37)
[2022-01-04] MEDS: amLODIPine BESYLATE 5 MG TAB PO SCH (09:37)
[2022-01-04] MEDS: GABAPENTIN 300 MG CAP PO SCH (09:38)
[2022-01-04] MEDS: PANTOPRAZOLE 40 MG TAB PO SCH (09:38)
[2022-01-04] MEDS: FUROSEMIDE 40 MG TAB PO SCH (09:39)
[2022-01-04] MEDS: BECLOMETHASONE DIPROPIONATE 80 MCG IN SCH (10:00)
[2022-01-04] MEDS ORDERED: NYS5LQ MT (11:44)
[2022-01-04] MEDS ORDERED: NYSTATIN (MOUTH-THROAT) 500,000 UNITS/5 ML SUSP MT ONE (11:45)
[2022-01-04 13:00] VITALS: BP 116/59
[2022-01-04 13:51] VITALS: BP 116/59
== END 2022-01-04 16:50 | disposition home or self-care (01) | DRG 871 ==
LOC: ER 15:36 → TELE 23:11 → TELE-EAST 01-02 16:47
PROVIDERS: ADMIT Nurse Practitioner Family; ATTEND Internal Medicine
DX: A41.9 Sepsis, unspecified organism (principal); J18.9 Pneumonia, unspecified organism; B37.0 Candidal stomatitis; J44.1 Chronic obstructive pulmonary disease with (acute) exacerbation; J44.0 Chronic obstructive pulmonary disease with (acute) lower respiratory infection; Z68.42 Body mass index [BMI] 45.0-49.9, adult; E11.9 Type 2 diabetes mellitus without complications; E66.01 Morbid (severe) obesity due to excess calories; E78.5 Hyperlipidemia, unspecified; I10 Essential (primary) hypertension; Z20.822 Contact with and (suspected) exposure to COVID-19
CPT/HCPCS: 36415; 71046; 71260; 74177; 76705; 80053; 80307; 81001; 82962; 83605; 83735; 83880; 85025; 85652; 86141; 87040; 87081; 87086; 94640; 99291; G0378; J0696; J1815; J2543; J3490

== ENCOUNTER 2022-04-18 09:46 | Emergency (ER) | payer OTHER, MEDICAID ==
[~2022-04-18] VITALS: Ht 144.8 cm; Wt 89.0 kg
[~2022-04-18 09:46] MED LIST changes: +NYS5LQ MT
[2022-04-18 17:11] VITALS: BP 119/64
[2022-04-18] MEDS ORDERED: cefTRIAXone SOD 1,000 MG VL IM ONE (18:30)
[2022-04-18] MEDS ORDERED: AMOX500T86 PO (18:39)
[2022-04-18] MEDS ORDERED: IBUP800T27 PO (18:39)
[2022-04-18] MEDS ORDERED: METOPROLOL TARTRATE 50 MG TAB PO ONE (18:45)
== END 2022-04-18 19:18 | disposition home or self-care (01) ==
LOC: ER 09:46
DX: L03.211 Cellulitis of face (principal); I10 Essential (primary) hypertension; E11.9 Type 2 diabetes mellitus without complications; E78.5 Hyperlipidemia, unspecified; J45.909 Unspecified asthma, uncomplicated; Z79.82 Long term (current) use of aspirin; Z79.899 Other long term (current) drug therapy; Z79.2 Long term (current) use of antibiotics
CPT/HCPCS: 96372; 99283; J0696

== ENCOUNTER 2023-12-24 14:47 | Inpatient (IN) | payer OTHER, MEDICAID ==
[~2023-12-24] VITALS: Ht 162.6 cm; Wt 89.5 kg
[~2023-12-24 14:47] MED LIST changes: -AMLO-496 PO; +AMLO1TAB23 PO; +AMOX500T86 PO; +GABA-1250 PO; -GABA300C10 PO; +IBUP-1456 PO; +POTA-36 PO; -POTA10TA51 PO
[2023-12-24 16:00] VITALS: RESP 20; O2SAT 94
[2023-12-24 16:05] LABS: Chloride 108 mmol/L (98-107); Potassium 3.7 mmol/L (3.5-5.1); Sodium 137 mmol/L (136-145)
[2023-12-24 16:06] LABS: Anion Gap 10 (5-15); Calcium 9.1 mg/dL (8.7-10.4); Carbon Dioxide 19 mmol/L (20-30)
[2023-12-24 16:07] LABS: Basophils # (auto) 0.1 10 ^3/uL (0-0.2); Basophils % (auto) 0.5 % (0.0-2.0); Eosinophils # (auto) 0 10 ^3/uL (0-0.8); Hematocrit 47.3 % (36.0-46.0); Hemoglobin 15.6 g/dL (12.2-16.2); Lymphocytes # (auto) 0.9 10 ^3/uL (0.4-5.4); Lymphocytes % (auto) 5.3 % (10.0-50.0); Mean Corpuscular Hemoglobin 28.5 pg (28.0-32.0); Mean Corpuscular Volume 86.3 fL (80.0-100.0); Monocytes # (auto) 0.7 10 ^3/uL (0-1.3); Monocytes % (auto) 3.8 % (0.0-12.0); Neutrophils # (auto) 16.2 10 ^3/uL (1.6-8.6); Neutrophils % (auto) 90.4 % (37.0-80.0); Nucleated Red Blood Cells % 0.3 %; Red Blood Cells 5.48 10^6/uL (4.0-5.20); Red Cell Distribution Width 17.9 % (11.8-14.3); White Blood Cell 17.9 10^3/uL (4.4-10.8)
[2023-12-24 16:11] LABS: BUN/Creatinine Ratio 15.5 (10.0-20.0); Blood Urea Nitrogen 16 mg/dL (9-23); Glucose 173 mg/dL (74-106)
[2023-12-24] MEDS: PIPERACILLIN-TAZOB 3.375GM 100 ML IV ONE (16:29)
[2023-12-24] MEDS: SODIUM CHLORIDE 0.9% 1,000 ML IV ONE ×2 (16:29→20:00)
[2023-12-24 17:05] LABS: Urine Bacteria None Seen /hpf (None Seen)
[2023-12-24] MEDS ORDERED: TEMAZEPAM 15 MG CAP PO PRN (17:15)
[2023-12-24] MEDS ORDERED: ONDANSETRON HCL 4 MG/2 ML VIAL IV PRN (17:15)
[2023-12-24] MEDS ORDERED: ALBUTEROL SULF 2.5 MG/0.5ML(0.5%) NEB SOLN NEB PRN (17:15)
[2023-12-24] MEDS ORDERED: DEXTROSE (50%) 50ML SYRG IV PRN (17:15)
[2023-12-24 17:27] LABS: Urine Blood TRACE /uL (Negative); Urine Budding Yeast OCCASIONAL /hpf (None Seen); Urine Clarity Clear (Clear); Urine Color Light-Yellow (Yellow); Urine Protein, UAD TRACE (Negative); Urine Specific Gravity 1.007 (1.001-1.035); Urine Urobilinogen Normal (Negative); Urine WBC 69 /hpf (0 - 5); Urine pH 5.5 (5.0-9.0)
[2023-12-24 18:41] VITALS: BP 102/50; PULSE 107; RESP 18; O2SAT 94
[2023-12-24 19:35] VITALS: PULSE 84; RESP 21; O2SAT 97
[2023-12-24 21:56] VITALS: O2SAT 96
[2023-12-24 22:05] VITALS: BP 94/56; PULSE 80; RESP 18; TEMP 98.3; O2SAT 95
[2023-12-24] MEDS: ATORVASTATIN 20 MG TAB PO SCH (22:47)
[2023-12-24] MEDS: ACCU-CHEK COMFORT CURVE STRIP VI SCH (22:47)
[2023-12-24] MEDS: InsuLIN REG 1unit/0.01ml Soln (100units/ml) SC SCH (22:48)
[2023-12-24 22:53] VITALS: PULSE 80; RESP 18
[2023-12-25] VITALS (8 sets, daily range): BP systolic 99–126; BP diastolic 51–66; PULSE 84–95; RESP 16–18; TEMP 97.8–100.6; O2SAT 92–98
[2023-12-25 07:01] LABS: Basophils # (auto) 0 10 ^3/uL (0-0.2); Basophils % (auto) 0.3 % (0.0-2.0); Eosinophils # (auto) 0 10 ^3/uL (0-0.8); Eosinophils % (auto) 0.3 % (0.0-7.0); Hematocrit 44.1 % (36.0-46.0); Hemoglobin 14.2 g/dL (12.2-16.2); Lymphocytes # (auto) 1.5 10 ^3/uL (0.4-5.4); Lymphocytes % (auto) 10.5 % (10.0-50.0); Mean Corpuscular Hemoglobin 28.4 pg (28.0-32.0); Mean Corpuscular Hgb Conc. 32.2 g/dL (32.0-36.0); Mean Corpuscular Volume 88.2 fL (80.0-100.0); Monocytes # (auto) 1.7 10 ^3/uL (0-1.3); Monocytes % (auto) 12.1 % (0.0-12.0); Neutrophils # (auto) 10.7 10 ^3/uL (1.6-8.6); Neutrophils % (auto) 76.8 % (37.0-80.0); Red Blood Cells 5.01 10^6/uL (4.0-5.20); Red Cell Distribution Width 18.5 % (11.8-14.3)
[2023-12-25 07:10] LABS: Chloride 117 mmol/L (98-107); Potassium 4.1 mmol/L (3.5-5.1)
[2023-12-25 07:11] LABS: Anion Gap 6 (5-15); Calcium 8.6 mg/dL (8.5-10.1); Carbon Dioxide 26 mmol/L (20-30)
[2023-12-25 07:16] LABS: BUN/Creatinine Ratio 15.7 (10.0-20.0); Blood Urea Nitrogen 14 mg/dL (9-23); Glucose 120 mg/dL (74-106)
[2023-12-25 07:34] LABS: Sodium 149 mmol/L (136-145)
[2023-12-25] MEDS: cefTRIAXone 1GM/50ML D5W 50 ML IV SCH (09:39)
[2023-12-25] MEDS: FUROSEMIDE 40 MG TAB PO SCH (09:40)
[2023-12-25] MEDS: ASPirin 81 mg TAB PO SCH (09:40)
[2023-12-25] MEDS: BENAZEPRIL HCL 10 MG TAB PO SCH (09:41)
[2023-12-25] MEDS: ENOXAPARIN SOD 40 MG/0.4 ML SYRINGE SC SCH (09:42)
[2023-12-25] MEDS ORDERED: MONT-8 PO (19:10)
[2023-12-25] MEDS ORDERED: TIRZ7.5I SC (19:10)
[2023-12-25] MEDS ORDERED: INSU100S4 SC (19:18)
[2023-12-25] MEDS ORDERED: SIMV20TA20 PO (19:18)
[2023-12-25] MEDS ORDERED: FAMO40TA7 PO (19:18)
[2023-12-25] MEDS ORDERED: DULO1CAP5 PO (19:18)
[2023-12-25] MEDS ORDERED: INSU100I52 SC (19:18)
[2023-12-25] MEDS ORDERED: BENA-36 PO (19:18)
[2023-12-25] MEDS ORDERED: ASPI-628 PO (19:18)
[2023-12-25] MEDS ORDERED: BUDE1AER4 INH (19:18)
[2023-12-25] MEDS: ACETAMINOPHEN 325 MG TAB PO PRN (21:17)
[2023-12-26] VITALS (9 sets, daily range): BP systolic 98–132; BP diastolic 47–61; PULSE 52–91; RESP 16–19; TEMP 98.1–99.4; O2SAT 93–100
[2023-12-26] MEDS: SODIUM CHLORIDE 0.9% 1,000 ML IV SCH (02:21)
[2023-12-26 09:13] LABS: Hepatitis B Surface Antigen Negative (Negative)
[2023-12-26 09:36] LABS: Hepatitis C Antibody Negative (Negative)
[2023-12-27] VITALS (9 sets, daily range): BP systolic 116–144; BP diastolic 57–60; PULSE 70–88; RESP 16–18; TEMP 98.2–99.4; O2SAT 94–100
[2023-12-27 12:48] LABS: COVID19 ANTIGEN SOFIA FIA NEGATIVE (NEGATIVE)
[2023-12-27] MEDS: PANTOPRAZOLE 40 MG/10 ML VIAL INJ IV ONE (18:29)
[2023-12-28 06:40] VITALS: BP 126/54; PULSE 93; RESP 16; TEMP 98.6; O2SAT 92
[2023-12-28 06:41] VITALS: BP 133/59; PULSE 89; RESP 17; TEMP 99.4; O2SAT 90
[2023-12-28 08:00] VITALS: PULSE 91; RESP 20; O2SAT 92
[2023-12-28 08:51] VITALS: BP 145/72; PULSE 91; RESP 20; TEMP 98.7; O2SAT 92
[2023-12-28 13:00] VITALS: BP 121/63; PULSE 77; RESP 20; TEMP 98.4; O2SAT 98
== END 2023-12-28 15:03 | DRG 871 ==
LOC: EDBD 14:47 → ER 14:56 → OVERFLOW 17:24 → CENTRAL 22:05
PROVIDERS: ADMIT Nurse Practitioner; ATTEND Family Medicine
PROC: 05H933Z Insertion of Infusion Device into Right Brachial Vein, Percutaneous Approach (ICD-10-PCS; principal; 2023-12-27)
PROC: B54MZZA Ultrasonography of Right Upper Extremity Veins, Guidance (ICD-10-PCS; 2023-12-27)
DX: A41.51 Sepsis due to Escherichia coli [E. coli] (principal); G93.41 Metabolic encephalopathy; N12 Tubulo-interstitial nephritis, not specified as acute or chronic; E11.22 Type 2 diabetes mellitus with diabetic chronic kidney disease; I12.9 Hypertensive chronic kidney disease with stage 1 through stage 4 chronic kidney disease, or unspecified chronic kidney disease; N18.9 Chronic kidney disease, unspecified; J45.909 Unspecified asthma, uncomplicated; Z20.822 Contact with and (suspected) exposure to COVID-19; E11.65 Type 2 diabetes mellitus with hyperglycemia; E78.00 Pure hypercholesterolemia, unspecified
CPT/HCPCS: 36415; 71045; 80048; 81001; 82962; 83605; 85025; 86803; 87040; 87077; 87086; 87088; 87186; 87340; 87426; 96365; 97163; C9113; G0378; J1815; J2543